=== PATIENT | female | born 1995 | race Caucasian/White ===

== ENCOUNTER 2017-12-05 17:49 | Observation (INO) ==
--- NOTE | 2017-12-05 20:27 | OB/GYN History & Physical ---
Date of Encounter: 12/05/17 Time of Encounter: 20:23 Assessment and Plan (1) Pyelonephritis affecting in first trimester Current visit: Yes Status: Acute Patient will be admitted for IV antibiotics for 24 hours. Will repeat labs in a.m. History of Present Illness Chief complaint: L flank pain HPI: Ms. Hawkins is a 22 year old female who presented to [facility] with a complaint of urgency frequency and left CVA tenderness. Patient states that this is been going on. She states that the pain has been progressing. She now has shakes. This patient is . She had a last menstrual period of October 10. She is approximately 10 weeks and 2 days. She had a positive pricey test in the emergency room. She states that she has had nausea and vomiting for 2 weeks or just been gagging today and yesterday. She has been vomiting and having difficulty holding down fluids and throat. She denies diarrhea. She has been having nocturia. She has been having chills with a temperature over 101. At the emergency room she was diagnosed with pyelonephritis given 1 dose of IM Rocephin. Patient was transferred here with elevated white count and rigor. She will be admitted for 24 hours of IV antibiotics. She has no drug allergies. She is currently on no medications. Socially she smokes 5-10 cigarettes a day. She does have a history of marijuana use. She denies alcohol. She denies any chronic medical conditions. Surgical history is negative. Obstetric history significant for one term vaginal delivery uncomplicated and 1 early miscarriage at 11 weeks. Family history is noncontributory. On admission to the emergency room patient's temperature was 101.1 with a pulse rate of 117 and blood pressure 131/75. She had an elevated white count 13.2. Hemoglobin was 14.5, hematocrit 42.4. Past Med Surg Social Fam HX - Past Medical History Medical history: no medical history Psychiatric history: anxiety, depression - Past Surgical History Surgical History: other - Social History Smoking Status: Current every day smoker Smokeless Tobacco Status: No Alcohol use: occasionally Drug use: marijuana - Family History Mother Adopted: No Living Status: Still Living Hx Family Cardiac Disorders: No Hx Family Respiratory Disorders: Yes (Mother Ashtma COPD) Hx Family Cancer: Yes (lukemia aunts,uncle and grandfather) Hx Family GI Disorders: No Hx Family Genitourinary Disorders: No Hx Family Endocrine Disorder: No Hx Family Musculoskeletal Disorders: No Hx Family Neuromuscular Disorders: No Hx Family Neurologic Disorders: No Hx Family HEENT Disorders: No Hx Family Autoimmune Disorders: No Hx Family Reproductive Disorders: No Hx Family Psychosocial Disorders: No Hx Family Medical Disorders: No Obstetrical History - Pregnancies : 3 Para: 1 Ab's: 1 Livin Medications and Allergies No Known Home Drugs 08/04/15 [History] Allergy/AdvReac Type Severity Reaction Status Date / Time No Known Allergies Allergy Verified 06/27/16 04:29 Review of System OB All systems PM: reviewed and no additional remarkable complaints except as stated Exam - Vital Signs Vital signs: Initial Vital Signs Temp Pulse Resp BP Pulse Ox 98.3 F 102 16 121/57 96 12/05/17 19:45 12/05/17 19:45 12/05/17 19:45 12/05/17 19:45 12/05/17 19:45 - Constitutional Constitutional: well developed, well nourished, average body habitus - HEENT HEENT: PERRL - Neck Neck exam: full ROM - Lungs Respiratory exam: CTAB - Cardiovascular Cardiovascular exam: RRR - Abdomen Abdomen: Present: bowel sounds normal Abdomen detail: left lower quadrant: tenderness (Patient with left CVA tenderness) - Extremities Extremities exam: full ROM - Comments Comments: Patient with left CVA tenderness and radiates down left side and left flank. Results All other labs normal.
[2017-12-05] MEDS ORDERED: Ondansetron 4 MG/2 ML VIAL IVP PRN (20:30)
[2017-12-05] MEDS: Ringers Solution, Lactated 1,000 ML IVC SCH (21:44)
[2017-12-05] MEDS: ceFAZolin 1,000 MG in Water for inj. (sterile) 20 ML 10 ML IVP SCH (21:45)
[2017-12-06 03:28] LABS: Basophils % 0.3 %; Eosinophils # 0.1 K/mcL (0.0-0.6); Eosinophils % 0.6 %; Hematocrit 31.9 % (35.3-44.9); Hemoglobin 10.9 g/dL (11.5-15.4); Immature Granulocytes % 0.3 % (0-4); Lymphocytes # 2.3 K/mcL (0.6-4.6); Lymphocytes % 22.7 %; Mean Corpuscular HGB Conc 34.2 g/dL (31.6-35.5); Mean Corpuscular Hemoglobin 30.3 pg (28.0-33.3); Mean Corpuscular Volume 88.6 fL (83.0-100.0); Mean Platelet Volume 10.5 fL (9.4-12.4); Neutrophils # 6.8 K/mcL (1.6-8.9); Platelet Count 169 K/mcL (140-400); Segmented Neutrophils % 66.1 %
[2017-12-06] MEDS: Acetaminophen 325 MG TABLET PO PRN ×2 (04:46→12:30)
[2017-12-06] MEDS: Ringers Solution, Lactated 1,000 ML IVC SCH ×3 (04:47→20:17)
[2017-12-06] MEDS: ceFAZolin 1,000 MG in Water for inj. (sterile) 20 ML 10 ML IVP SCH ×3 (04:48→20:19)
--- NOTE | 2017-12-06 08:10 | OB/GYN Progress Note ---
Date of Encounter: 12/06/17 Time of Encounter: 08:08 - Assessment and Plan (1) Pyelonephritis affecting in first trimester Current Visit: Yes Status: Acute will continue IV ancef for 24 hrs then will D/C home in am if stable and afebrile Subjective - Subjective Interval history: Patient feeling better this morning still having right flank pain but the pain in the front has resolved. She has been afebrile since her admission. Patient is on Rocephin we will continue for another 24 hours. Patient has a history of kidney stones in the past has not had any flareups in the past 8 years. Did advise her if she continues to have pain we might do an ultrasound at this point I doubt that its kidney stone related and that can be addressed as an outpatient. Antepartum ROS: other (right flank pain) Objective - Vital Signs Vital Signs: Vital Signs Temp Pulse Resp BP Pulse Ox 12/06/17 07:30 98.5 F 86 18 110/61 100 12/06/17 04:50 98.6 F 92 16 108/61 98 12/06/17 00:15 98.4 F 92 16 101/50 98 12/05/17 19:45 98.3 F 102 16 121/57 96 Intake and Output 12/05/17 12/06/17 12/06/17 23:59 07:59 15:59 Intake Total 1875 / 1875 Output Total 800 / 800 Balance 1075 / 1075 Intake: IV Fluids 875 / 875 Lactated Ringers 1,000 ML @ 125 865 / 865 mls/hr IVC .Q8H LEVI Rx#: [id number] Ancef 1,000 MG In Water for inj . (sterile) 10 ML @ 200 mls/hr IVP Q8H LEVI Rx#:[id number] Oral 1000 / 1000 Output: Urine 800 / 800 Other: Meal [place] and chips Percent of Meal Consumed 100% Stool Characteristics Normal for Patient Weight 58.967 kg - Exam Auscultation: bilateral: normal Abdomen: Present: normal appearance, other (mild right flank pain) - Labs Labs: Abnormal lab results RBC 3.60 M/mcL (3.82-4.97) L 12/06/17 02:57 Hgb 10.9 g/dL (11.5-15.4) L D 12/06/17 02:57 Hct 31.9 % (35.3-44.9) L 12/06/17 02:57
[2017-12-07] MEDS: Acetaminophen 325 MG TABLET PO PRN (01:50)
[2017-12-07] MEDS: ceFAZolin 1,000 MG in Water for inj. (sterile) 20 ML 10 ML IVP SCH (04:54)
--- NOTE | 2017-12-07 08:20 | Discharge Summary ---
Date of Encounter: 12/07/17 Time of Encounter: 08:21 - Discharge Diagnosis (1) Pyelonephritis affecting in first trimester Priority: Primary Status: Acute - Discharge Medications Prescriptions: Cephalexin [Keflex] 500 mg PO TID 10 Days #30 capsule MDD 3 Home Medications: Cephalexin [Keflex] 500 mg PO TID 10 Days #30 capsule MDD 3 12/07/17 [Rx] Allergies/Adverse Reactions: Allergy/AdvReac Type Severity Reaction Status Date / Time No Known Allergies Allergy Verified 06/27/16 04:29 Data Procedures and tests throughout hospitalization: Laboratory Tests 12/06/17 02:57 WBC 10.3 RBC 3.60 L Hgb 10.9 L D Hct 31.9 L MCV 88.6 MCH 30.3 MCHC 34.2 RDW 13.0 Plt Count 169 MPV 10.5 Immature Gran % 0.3 Seg Neutrophils % 66.1 Lymphocytes % 22.7 Monocytes % 10.0 Eosinophils % 0.6 Basophils % 0.3 Neutrophils # 6.8 Lymphocytes # 2.3 Monocytes # 1.0 Eosinophils # 0.1 Basophils # 0.0 Date of admission: 12/05/17 19:17 Primary care physician: PCP NONE Discharging clinician: Warren Hodge Anticipated date of discharge: 12/07/17 - Patient Status Disposition: Home, Self-Care Condition: Good Functional capacity at discharge: independent ambulation Overall status at discharge: patient is back to baseline - Ambulatory Orders Ambulatory Orders: Discharge Order Time Frame: 1 Day, Facility: [facility], Location: [facility] - Discharge Instructions Instructions: Urinary Tract Infection in Women (DC) Follow Up With: NONE,PCP [Primary Care Provider] - Additional Instructions: follow up with Dr Meadows in office, call office for appt - Diet and Activity Activity: resume usual activities as tolerated Diet: advance to your usual diet Hospital Course [employer] Time Attestation: Total time spent providing and/or coordinating discharge services: Exam - Constitutional Vitals: Temp Pulse Resp BP Pulse Ox 98.8 F 86 16 116/59 99 12/07/17 04:50 12/07/17 04:50 12/07/17 04:50 12/07/17 04:50 12/07/17 04:50 General appearance IM: A&O X 3, pleasant, no acute distress, answers questions appropriately - Respiratory Respiratory exam: Present: CTAB - Cardiovascular Cardiovascular exam IM: Present: RRR - GI/Abdominal GI/Abdominal exam IM: normal bowel sounds - VTE Reasons for not Prescribing Prophylaxis: Treatment not Indicated - Low risk for VTE
[2017-12-07 09:06] VITALS: BP 111/76
== END 2017-12-07 09:05 | disposition home or self-care (01) ==
LOC: 1NENUPED → 1NENUOBS 12-06 17:13
PROVIDERS: ADMIT Obstetrics & Gynecology; ATTEND Obstetrics & Gynecology